=== PATIENT | female | born 1985 | race Caucasian/White ===

== ENCOUNTER 2020-11-17 10:52 | Outpatient (REF) | payer OTHER, SELFPAY ==
[2020-11-17 13:38] LABS: MANUAL DIFF FLAG NO
[2020-11-17 13:44] LABS: Basophils Percent Auto 0.2 % (0-2); Eosinophils Absolute Auto 0.2 X10*3/uL (0.0-0.4); Eosinophils Percent Auto 2.3 % (0-4); Hematocrit 45.8 % (37-47); Hemoglobin 15.4 g/dl (12.0-16.0); Imm Gran Abs Auto 0.02 X10*3/uL (0.00-0.03); Imm Gran Pct Auto 0.2 % (0.0-0.4); Lymphocytes Absolute Auto 2.3 X10*3/uL (1.2-4.9); Lymphocytes Percent Auto 24.1 % (20-40); Mean Corpuscular HGB Conc 33.6 g/dl (31.0-35.0); Mean Corpuscular Hemoglobin 29.8 pg (27.0-33.0); Mean Corpuscular Volume 88.8 fL (80-98); Mean Platelet Volume 11.8 fL (9.4-12.3); Monocytes Absolute Auto 0.8 X10*3/uL (0.1-1.2); Monocytes Percent Auto 8.5 % (2-11); Neutrophils Absolute Auto 6.1 X10*3/uL (2.0-8.3); Neutrophils Percent Auto 64.7 % (45-73); Platelet Count 219 X10*3/uL (160-400); Red Blood Count 5.16 X10*6/uL (4.20-5.50); Red Cell Distribution Width 13.1 % (11.0-16.0); White Blood Count 9.4 X10*3/uL (4.8-10.8)
[2020-11-17 14:25] LABS: Alanine Aminotransferase 15 U/L (0-31); Albumin Level 4.3 g/dL (3.5-5.0); Alkaline Phosphatase 52 U/L (39-117); Anion Gap 13 (12-20); Aspartate Amino Transferase 16 U/L (5-31); Bilirubin Total 0.7 mg/dL (0.0-1.0); Blood Urea Nitrogen 13 mg/dL (9-16); Calcium 9.6 mg/dL (8.4-10.2); Carbon Dioxide 27 mmol/L (22-29); Chloride 103 mmol/L (96-108); Estimated Glomerular Filt Rate > 60; Glucose Random 89 mg/dL (60-115); Potassium 4.5 mmol/L (3.3-5.1); Sodium 138 mmol/L (135-145); Total Protein 6.8 g/dL (6.5-8.0)
[2020-11-17 14:47] LABS: Free T4 (Free Thyroxine) 0.91 ng/dL (0.71-1.85); Thyroid Stimulating Hormone 2.12 uIU/mL (0.32-4.0)
[2020-11-17 14:56] LABS: Vitamin B12 292 pg/mL (200-900)
== END 2020-11-17 10:53 | disposition home or self-care (01) ==
LOC: HO.10HDL 10:52
PROVIDERS: Visit Provider Internal Medicine
DX: E53.8 Deficiency of other specified B group vitamins (principal); E66.9 Obesity, unspecified; F33.9 Major depressive disorder, recurrent, unspecified; Z72.0 Tobacco use
CPT/HCPCS: 36415; 80053; 82607; 84439; 84443; 85025

== ENCOUNTER 2021-10-25 10:21 | Outpatient (REF) | payer OTHER, SELFPAY ==
[2021-10-25 14:10] LABS: Appearance Urine CLEAR; Color Urine YELLOW; Glucose Urine UA NEG (NEG); Leukocyte Esterase Urine TRACE (NEG); Nitrite Urine NEG (NEG); Specific Gravity - Urine 1.015 (1.005-1.025); UACC Culture Trigger YES; Urine Blood TRACE (NEG); Urine Ketones NEG (NEG); Urine Protein NEG (NEG-TRACE)
[2021-10-25 14:45] LABS: Squamous Epithelial Cell Urine 1+ /LPF
[2021-10-25 14:46] LABS: Bacteria Urine 1+ /LPF; WBC Urine 50-75 /HPF (0-4)
== END 2021-10-25 10:22 | disposition home or self-care (01) ==
LOC: HO.10HDL 10:21
PROVIDERS: Visit Provider Internal Medicine
DX: R30.0 Dysuria (principal)
CPT/HCPCS: 81001; 87086; 87088; 87186

== ENCOUNTER 2021-11-24 10:00 | Outpatient (RCR) | payer OTHER, SELFPAY | END 2022-01-03 14:57 | disposition home or self-care (01) | LOC: HO.PT 10:00 | PROVIDERS: PCP Internal Medicine; Visit Provider Internal Medicine | DX: M53.3 Sacrococcygeal disorders, not elsewhere classified (principal) | CPT/HCPCS: 97110; 97112; 97140; 97162; 97530 ==

== ENCOUNTER 2023-06-03 11:36 | Outpatient (REF) | payer OTHER, SELFPAY ==
[2023-06-03 13:33] LABS: MANUAL DIFF FLAG NO
[2023-06-03 13:44] LABS: Basophils Percent Auto 0.3 % (0-2); Eosinophils Absolute Auto 0.1 X10*3/uL (0.0-0.4); Eosinophils Percent Auto 0.8 % (0-4); Hematocrit 45.4 % (37.0-47.0); Hemoglobin 15.1 g/dl (12.0-16.0); Imm Gran Abs Auto 0.03 X10*3/uL (0.00-0.03); Imm Gran Pct Auto 0.3 % (0.0-0.4); Lymphocytes Absolute Auto 2.4 X10*3/uL (1.2-4.9); Lymphocytes Percent Auto 23.4 % (20-40); Mean Corpuscular HGB Conc 33.3 g/dl (31.0-35.0); Mean Corpuscular Hemoglobin 29.8 pg (27.0-33.0); Mean Corpuscular Volume 89.5 fL (80.0-98.0); Mean Platelet Volume 11.8 fL (9.4-12.3); Monocytes Absolute Auto 0.9 X10*3/uL (0.1-1.2); Monocytes Percent Auto 9.2 % (2-11); Neutrophils Absolute Auto 6.7 x10*3/uL (2.0-8.3); Platelet Count 240 X10*3/uL (160-400); Red Blood Count 5.07 X10*6/uL (4.20-5.50); Red Cell Distribution Width 13.1 % (11.0-16.0); White Blood Count 10.2 X10*3/uL (4.8-10.8)
[2023-06-03 14:17] LABS: Anion Gap 12 (12-20); Blood Urea Nitrogen 8 mg/dL (9-16); Calcium 9.6 mg/dL (8.4-10.2); Carbon Dioxide 23 mmol/L (22-29); Chloride 107 mmol/L (96-108); Cholesterol 198 mg/dL (<200); Estimated Glomerular Filt Rate > 60; Glucose Random 95 mg/dL (60-115); Potassium 4.2 mmol/L (3.3-5.1); Sodium 138 mmol/L (135-145)
== END 2023-06-03 11:37 | disposition home or self-care (01) ==
LOC: HO.10HDL 11:36
PROVIDERS: Visit Provider Internal Medicine
DX: J30.1 Allergic rhinitis due to pollen (principal); Z72.0 Tobacco use; Z84.1 Family history of disorders of kidney and ureter
CPT/HCPCS: 36415; 80048; 82465; 85025

== ENCOUNTER 2024-02-10 16:56 | Outpatient (REF) | payer OTHER, SELFPAY ==
[2024-02-10 18:04] LABS: Influenza A PCR NEGATIVE (Negative); Influenza B PCR NEGATIVE (Negative); Resp Syncy Virus RNA Qual PCR NEGATIVE (Negative); SARS COV2 PCR INHOUSE NEGATIVE (Negative)
== END 2024-02-10 16:57 | disposition home or self-care (01) ==
LOC: HO.LNP 16:56
PROVIDERS: Visit Provider Internal Medicine
DX: R06.02 Shortness of breath (principal); J02.9 Acute pharyngitis, unspecified; R50.9 Fever, unspecified
CPT/HCPCS: 0241U

== ENCOUNTER 2024-11-14 00:30 | Emergency (ER) | payer OTHER, SELFPAY ==
--- NOTE | 2024-11-14 | ECG_ITS ---
Test Reason : TACHYCARDIA Blood Pressure : */* mmHG Vent. Rate : 113 BPM Atrial Rate : 113 BPM P-R Int : 144 ms QRS Dur : 80 ms QT Int : 336 ms P-R-T Axes : 33 76 14 degrees QTcB Int : 460 ms Sinus tachycardia Otherwise normal ECG When compared with ECG of 25-Oct-2009 14:34, Increase in ventricular rate Referred By: Generic ED Physician Electronically Signed By: LAMAR BEACH
[2024-11-14 00:32] VITALS: BP 130/88; PULSE 135; RESP 18; TEMP 36.8; O2SAT 98; BMI 38.5
--- NOTE | 2024-11-14 00:38 | PC.NURSE ---
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
[2024-11-14 00:49] LABS: MANUAL DIFF FLAG NO
[2024-11-14 00:56] LABS: Basophils Percent Auto 0.2 % (0-2); Eosinophils Absolute Auto 0.2 X10*3/uL (0.0-0.4); Eosinophils Percent Auto 1.6 % (0-4); Hematocrit 44.3 % (37.0-47.0); Hemoglobin 15.5 g/dl (12.0-16.0); Imm Gran Abs Auto 0.03 X10*3/uL (0.00-0.03); Imm Gran Pct Auto 0.2 % (0.0-0.4); Lymphocytes Absolute Auto 4.2 X10*3/uL (1.2-4.9); Lymphocytes Percent Auto 29.2 % (20-40); Mean Corpuscular Hemoglobin 29.8 pg (27.0-33.0); Mean Corpuscular Volume 85.2 fL (80.0-98.0); Mean Platelet Volume 10.5 fL (9.4-12.3); Monocytes Absolute Auto 1.2 X10*3/uL (0.1-1.2); Monocytes Percent Auto 8.4 % (2-11); Neutrophils Absolute Auto 8.6 x10*3/uL (2.0-8.3); Neutrophils Percent Auto 60.4 % (45-73); Platelet Count 263 X10*3/uL (160-400); Red Cell Distribution Width 12.9 % (11.0-16.0); White Blood Count 14.3 X10*3/uL (4.8-10.8)
[2024-11-14 01:11] LABS: Alanine Aminotransferase 20 U/L (0-31); Albumin Level 4.3 g/dL (3.5-5.0); Alkaline Phosphatase 61 U/L (39-117); Anion Gap 15 (12-20); Aspartate Amino Transferase 19 U/L (5-31); Bilirubin Total 0.3 mg/dL (0.0-1.0); Blood Urea Nitrogen 12 mg/dL (9-16); Calcium 9.3 mg/dL (8.4-10.2); Carbon Dioxide 27 mmol/L (22-29); Chloride 102 mmol/L (96-108); Creatinine Clr Calc Pharmacy 115.3; Estimated Glomerular Filt Rate > 60; Glucose Random 107 mg/dL (60-115); Potassium 3.4 mmol/L (3.3-5.1); Sodium 141 mmol/L (135-145); Total Protein 7.5 g/dL (6.5-8.0)
[2024-11-14 01:18] LABS: Troponin-I High Sensitivity < 2.7 ng/L (<3.5-17.0)
--- NOTE | 2024-11-14 01:30 | ED_ITS ---
HPI - Arrhythmia/Palpitations General Chief Complaint: Arrhythmia/Palpitations Stated Complaint: heart rate 150, bilateral arm pain Time Seen by Provider: 11/14/24 01:30 Source: patient Mode of arrival: ambulatory Limitations: no limitations History of Present Illness ED Provider: HPI narrative: Patient no significant past medical history noticed lightheadedness and tachycardia when she stood up prior to arrival with heart rate in 130s patient has passed out a week ago at that time she did not check her heart rate patient's drinks caffeine and had smoked marijuana Related Data Allergies Allergy/AdvReac Type Severity Reaction Status Date / Time No Known Allergies Allergy Verified 11/14/24 00:36 [No Known Allergies*] Review of Systems 2 Review of Systems: Yes all other systems are reviewed and are negative [facility] Social History Social History Smoked in Last 30 Days: Yes Use of substances other than those prescribed or required for medical reasons: Yes Substance Use Type: Marijuana Advance Directives: No Advance Directives Information Provided: Yes Do you have a plan to hurt others: No Plan Patient : No Physical Exam 2 Vital Signs: Vital Signs: Last Vital Signs Temp 97.5 F 11/14/24 03:45 Pulse 100 11/14/24 03:45 Resp 12 11/14/24 03:45 BP 121/63 11/14/24 03:45 Pulse Ox 97 11/14/24 03:45 O2 Del Method Room Air 11/14/24 03:45 BMI result Body Mass Index 38.5 Appearance: Alert. Oriented X3. No acute distress. Eyes: PERRLA, No Nystagmus ENT: Pharynx normal. Oral Mucosa moist Neck: Normal inspection. Neck supple. CVS: Normal heart rate and rhythm. Pulses normal. Respiratory: No respiratory distress. Equal air entry bilateral, no wheezing/rales/rhonchi Abdomen: Soft and nontender. Bowel sounds are present, no mass palpable, no CVA tenderness Skin: Skin warm and dry. Normal skin color. Normal skin turgor. Extremities: No lower extremity edema. No calf tenderness Neuro: Oriented X 3. No motor deficit. No sensory deficit.No cerebellar signs , cranial nerves II-XII intact Medical Decision Making Medical Decision Making MDM Narrative: Patient's heart rate went high on standing to 110 with blood pressure dropped from 121/63 while sitting to 107/63 with heart rate of 107 likely patient has POTS syndrome will give a p.o. fluids recheck Lab Data MDM Lab Attestation statement: I reviewed the patient's lab results. 11/14/24 00:45 11/14/24 00:45 Labs: Lab Results 11/14/24 Range/Units 00:45 WBC 14.3 H (4.8-10.8) X10*3/uL RBC 5.20 (4.20-5.50) X10*6/uL Hgb 15.5 (12.0-16.0) g/dl Hct 44.3 (37.0-47.0) % MCV 85.2 (80.0-98.0) fL MCH 29.8 (27.0-33.0) pg MCHC 35.0 (31.0-35.0) g/dl RDW 12.9 (11.0-16.0) % Plt Count 263 (160-400) X10*3/uL MPV 10.5 (9.4-12.3) fL Immature Gran % (Auto) 0.2 (0.0-0.4) % Neut % (Auto) 60.4 (45-73) % Lymph % (Auto) 29.2 (20-40) % Castro % (Auto) 8.4 (2-11) % Eos % (Auto) 1.6 (0-4) % Baso % (Auto) 0.2 (0-2) % Lymph # (Auto) 4.2 (1.2-4.9) X10*3/uL Castro # (Auto) 1.2 (0.1-1.2) X10*3/uL Eos # (Auto) 0.2 (0.0-0.4) X10*3/uL Baso # (Auto) 0.0 (0.0-0.2) X10*3/uL Abs Immat Gran (auto) 0.03 (0.00-0.03) X10*3/uL Absolute Neuts (auto) 8.6 H (2.0-8.3) x10*3/uL Absolute Nucleated RBC 0.000 (0.0-0.012) X10*3/uL Nucleated RBC % (auto) 0.0 (0.0-0.2) /100WBC Sodium 141 (135-145) mmol/L Potassium 3.4 (3.3-5.1) mmol/L Chloride 102 (96-108) mmol/L Carbon Dioxide 27 (22-29) mmol/L Anion Gap 15 (12-20) BUN 12 (9-16) mg/dL Creatinine 0.86 (0.5-1.4) mg/dL Estim Creat Clear Calc 115.3 Estimated GFR > 60 Random Glucose 107 (60-115) mg/dL Calcium 9.3 (8.4-10.2) mg/dL Magnesium 2.0 (1.6-2.6) mg/dL Total Bilirubin 0.3 (0.0-1.0) mg/dL AST 19 (5-31) U/L ALT 20 (0-31) U/L Alkaline Phosphatase 61 (39-117) U/L Troponin I High Sens < 2.7 (<3.5-17.0) ng/L Total Protein 7.5 (6.5-8.0) g/dL Albumin 4.3 (3.5-5.0) g/dL Independent Interpretation I performed an independent interpretation of an: EKG Interpretation: Sinus tachycardia with heart rate of 113 beats per minute no acute ST-T changes no acute ischemia Discharge Plan Discharge Clinical Impression: Postural orthostatic tachycardia syndrome [POTS] Patient Disposition: Home, Self-Care Instructions: Supraventricular Tachycardia (ED) Additional Instructions: Likely have postural orthostatic tachycardia syndrome Drink plenty of fluids at least 3 L of water a day Avoid caffeine drinks Take your own time on standing do not stand up quick Follow with your PCP for further management Interventions: ED Discharge Assessment Last Done: 11/14/24 03:45 Discharge Date/Time: 11/14/24 03:49 Print Language: Portuguese
[2024-11-14 01:38] VITALS: BP 122/69; PULSE 92; RESP 16; TEMP 37.1; O2SAT 97
[2024-11-14 02:00] VITALS: BP 121/63; PULSE 100; RESP 12; TEMP 36.4; O2SAT 97
[2024-11-14 03:45] VITALS: BP 121/63; PULSE 100; RESP 12; TEMP 36.4; O2SAT 97
== END 2024-11-14 03:49 | disposition home or self-care (01) ==
PROVIDERS: Emergency Provider Internal Medicine; PCP Internal Medicine
DX: G90.A Postural orthostatic tachycardia syndrome [POTS] (principal); R42 Dizziness and giddiness; R00.0 Tachycardia, unspecified; F12.90 Cannabis use, unspecified, uncomplicated
CPT/HCPCS: 36415; 80053; 83735; 84484; 85025; 93005; 99283; 99285

== ENCOUNTER → 2024-11-14 00:38 | Outpatient (BNV) | payer OTHER, SELFPAY | PROVIDERS: Emergency Provider Internal Medicine; PCP Internal Medicine; Visit Provider Internal Medicine | DX: R00.0 Tachycardia, unspecified (principal) | CPT/HCPCS: 93010 ==

== ENCOUNTER 2024-11-18 16:24 | Outpatient (AMB) | payer OTHER, SELFPAY ==
--- NOTE | 2024-11-18 16:25 | A.OFFPC_ITS ---
Vital Signs 11/18/24 16:26 Height 5 ft 7 in Weight 243 lb BMI 38.1 BP 118/78 Respiration 16 Pulse 94 Pulse Source Pulse Oximeter Temp 97.7 F Temp Source Temporal Artery Scan Pulse Oximetry (%) 96 Oxygen Delivery Method Room Air Intake Visit Reasons: Routine Transmission Tester Required: No Accompanied by: Self / Same As Patient Allergies No Known Allergies [No Known Allergies*] Allergy (Verified 11/18/24 18:08) Medication List - Last Reconciled 11/18/24 by Ahmet Gaitan MD No Known Home Meds Tobacco use date assessed: 11/18/24 Dental Screening Dental Screen Date: 11/18/24 Did you have a dental visit in the last 12 months?: Yes Did you have a dental problem in the last 6 months where you did not have access to dental care?: No PFSH Family History (Updated 11/18/24 @ 16:37 by JANENE Paula) Father Afib Mother Fibroids Social History (Updated 11/18/24 @ 16:38 by JANENE Paula) Housing: House Alcohol intake: current Alcohol intake frequency: does not drink Patient Tobacco Use Status: Current someday Tobacco user Cigarette Packs Per Day: 1 Substance Use Type: Marijuana service: No Current occupational status: employed Cognitive needs: No Hearing needs: No Vision needs: Yes (rx glasses) Questionnaire PHQ-9 Over the last 2 weeks, how often have you been bothered by any of the following problems? 1. Little interest or pleasure in doing things: not at all 2. Feeling down, depressed, or hopeless: not at all 3. Trouble falling or staying asleep, or sleeping too much: not at all 4. Feeling tired or having little energy: not at all 5. Poor appetite or overeating: not at all 6. Feeling bad about yourself - or that you are a failure or have let yourself or your family down: not at all 7. Trouble concentrating on things, such as reading the newspaper or watching television: not at all 8. Moving or speaking so slowly that other people could have noticed. Or the opposite - being so fidgety or restless that you have been moving around a lot more than usual: not at all 9. Thoughts that you would be better off or of hurting yourself in some way: not at all Total score: 0 Source: Developed by Drs. Lanre Hurley, Tc Cuevas and colleagues, with an educational mary from [employer]. Thrive Questionnaire Date Thrive assessed: 11/18/24 I am a: Patient What is your living situation today?: I have a steady place to live Within the past 12 months, did the food you bought not last and you didn't have the money to get more?: Never true Within the past 12 months, did you worry whether your food would run out before you got money to buy more?: Never true Do you have trouble paying for medicines?: No Do you have trouble getting transportation to medical appointments?: No Do you have trouble paying your heating and electricity bill?: No Do you have trouble taking care of your child, family member or friend?: No Do you have trouble with day-to-day activities such as bathing, preparing meals, shopping, managing finances, etc.?: No Are you currently unemployed and looking for a job?: No Are you interested in more education?: No Please select the resources that you would like help with: None THRIVE Score: 0 AUDIT C Alcohol Use Questionnaire (AUDIT-C) 1. How often do you have a drink containing alcohol?: Never 3. How often do you have six or more drinks on one occasion?: Never Total Score: 0 LENKA-7 AMB Questionnaire LENKA-7 Date LENKA - 7 assessed: 11/18/24 Feeling nervous, anxious, or on edge: 0 = Not at all Not being able to stop or control worryin = Not at all Worrying too much about different things: 0 = Not at all Trouble relaxin = Not at all Being so restless that it is hard to sit still: 0 = Not at all Becoming easily annoyed or irritable: 0 = Not at all Feeling afraid as if something awful might happen: 0 = Not at all Total LENKA-7 score (0-4 normal; 5-9 mild; 10-14 moderate; 15-21 severe): 0 Source: Developed by Dena Carter Kurt Kroenke and colleagues, with an educational mary from [employer]. Physical exam (Primary Care) Vital Signs: Last Vital Signs Temp 97.7 F 11/18/24 16:26 Pulse 94 11/18/24 16:26 Resp 16 11/18/24 16:26 BP 118/78 11/18/24 16:26 Pulse Ox 96 11/18/24 16:26 Oxygen Delivery Method Room Air 11/18/24 16:26 BMI result Body Mass Index 38.1 Tobacco/Smoking Status: Tobacco use Status Tobacco use date assessed 11/18/24 11/18/24 16:39 Patient Tobacco Use Status Current someday Tobacco 11/18/24 16:39 PHQ-9: PHQ-9 Score PHQ-9: Total score 0 11/18/24 16:39 Thrive Assessment: Date of Thrive Assessment Date Thrive assessed 11/18/24 11/18/24 16:39 Coding Level of Care Code New Pt Level 4 (61251) Complex EM visit Add On G2211 Diagnoses Tachycardia R00.0 Concussion S06.0XAA Assessment & Plan Assessment & Plan (1) Tachycardia: Code(s): R00.0 - Tachycardia, unspecified Plan: TSH and ESR to be checked (2) Concussion: Code(s): S06.0XAA - Concussion with loss of consciousness status unknown, initial encounter Plan: CT scan of head ordered. Will call with results Plan History of Present Illness The patient is a 39-year-old female presenting with elevated heart rate and suspected Postural Orthostatic Tachycardia Syndrome (POTS). The episodes began post a syncopal incident that involved a fall and head injury approximately two weeks ago. She visited the ER after experiencing a resting heart rate of 150 bpm which persisted, alongside symptoms indicating potential cardiovascular stress. Previous thorough thyroid evaluations during similar episodes in 2020 yielded normal results; however, new thyroid assessments were not conducted during this ER visit. History of childhood ADD treatment with Imipramine and recent depression/anxiety management using Guanfacine were reviewed for cardiovascular side effects. Despite patient anxiety, resting and exertional heart rates have remained notably increased compared to rates recorded previously, aligning with episodes of tachycardia since post-COVID 2021. Current history of using cannabis. Social History - Employment: Works as a real estate office supervisor; capable of performing duties without recent difficulty. - Substance Use: Previously a regular cannabis smoker; ceased use post-ER visit, regular cannabis use and reduced to one half-caf coffee per day post-ER visit. - Significant Life Event: Upcoming wedding, but does not feel conscious stress about this event. - Functional Status: Remains fully functional and active in daily work activities. Review of Systems - Cardiovascular: Reports consistently elevated resting heart rate, palpitations; denies chest pain. - Neurological: Denies tremors, sweating; reports dizziness, mild headache, pressure, and fullness in ears. - Respiratory: Reports occasional shortness of breath with palpitations. - Endocrine: Denies hot or cold intolerance. - General: Denies fatigue, weight loss or gain outside of stress factors. - Musculoskeletal: Denies muscle or joint pain. Physical Exam General: Appearance normal, both eyes and all related structures Nutritional Appearance: Well nourished Orientation/consciousness: Patient oriented x3 Limitations: No limitations Head: Tender area on the scalp, no bleeding Neck: Uncomfortable, normal visual inspection Chest: Normal palpation of entire chest wall, patient reports feeling like there's air in the chest Respiratory: Normal respiratory effort, patient reports feeling short of breath sometimes Neurology: Patient oriented x3 Heart: S1 S2 tachycardia Results - Labs: Blood sugar levels normal. - Tests: Previous thyroid panel (2020) normal. Plan Assessment for Postural Orthostatic Tachycardia Syndrome merits investigation via endocrinological and cardiovascular evaluations. Thyroid functionality, especially given the individual's symptomatic history and abnormal heart rates, should be reexamined against recent observations. Beta blockers, although available, were not introduced, as patient symptoms and conditions do not demand acute interventions. Reassurances about cardiac health are emphasized, particularly with recently normal EKG findings. Patient was informed and verbally consented to the use of an ambient scribe for clinic note documentation during this visit. Discussion Notes Will get TSH and ESR checked. Since all symptoms started after the fall, a CT of the head will be ordered Patient Instructions - Monitor heart rate regularly at home, especially with activity changes. - Reduce caffeine intake even further if possible. - Avoid any substances that may affect heart rate significantly. - Seek immediate medical attention for any significant increase in symptoms, especially severe palpitations, chest pain, or acute dizziness. - Schedule a follow-up appointment for further thyroid and cardiovascular evaluation. - Maintain regular activity levels as tolerated and discuss any changes in symptoms with me. Orders: Orders CT head/brain wo IV con Today R00.0 - Tachycardia, unspecified, S06.0XAA - Concussion with loss of consciousness status unknown, initial encounter Thyroid Stimulating Hormone Today R00.0 - Tachycardia, unspecified Erythrocyte Sedimentation Rate Today R00.0 - Tachycardia, unspecified
[2024-11-18 16:26] VITALS: BP 118/78; PULSE 94; RESP 16; TEMP 36.5; O2SAT 96; BMI 38.1
== END 2024-11-18 16:58 | disposition home or self-care (01) ==
LOC: HO.HMCHD 16:24
PROVIDERS: PCP Internal Medicine; Visit Provider Internal Medicine
DX: R00.0 Tachycardia, unspecified (principal); S06.0XAA Concussion with loss of consciousness status unknown, initial encounter

== ENCOUNTER → 2024-11-18 16:24 | Outpatient (BNVA) | payer OTHER, SELFPAY | PROVIDERS: PCP Internal Medicine; Visit Provider Internal Medicine | DX: R00.0 Tachycardia, unspecified (principal); S06.0XAD Concussion with loss of consciousness status unknown, subsequent encounter | CPT/HCPCS: 99202 ==

== ENCOUNTER 2024-11-19 13:11 | Outpatient (REF) | payer OTHER, SELFPAY ==
[2024-11-19 14:49] LABS: Erythrocyte Sedimentation Rate 8 MM/HR (0-20)
[2024-11-19 15:50] LABS: Thyroid Stimulating Hormone 1.84 uIU/mL (0.32-4.0)
== END 2024-11-19 13:12 | disposition home or self-care (01) ==
LOC: HO.LAB 13:11
PROVIDERS: PCP Internal Medicine; Visit Provider Internal Medicine
DX: R00.0 Tachycardia, unspecified (principal)
CPT/HCPCS: 36415; 84443; 85652

== ENCOUNTER 2025-01-06 15:25 | Outpatient (AMB) | payer OTHER, SELFPAY ==
--- NOTE | 2025-01-06 15:37 | A.OFFPC_ITS ---
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 She states that 2 months ago, she had used psilocybin and subsequently did develop lightheadedness causing her to fall back hitting her head against a wall. She did lose consciousness as witnessed by her girlfriend for 1-2 minutes and was noted to have been convulsing. She does have full recollection following the event. Following the episode, she had been experiencing palpitations with heart rate up to 150 beats per minute ongoing for 1 hours so she presented to the ED. she had also been experiencing blood pressure fluctuations. She was told that she likely had POTS. EKG was without any noted arrhythmia. Since then, symptoms have been stable. She has been increasing water intake and has been slow with position changes. She does endorse ongoing depression anxiety primarily related to seasonal changes. She does follow with a therapist. She also reports chronic pain primarily in the neck and left hip. PFSH Family History Father Afib Mother Fibroids Social History Housing: House Alcohol intake: current Alcohol intake frequency: does not drink Patient Tobacco Use Status: Current someday Tobacco user Cigarette Packs Per Day: 1 Substance Use Type: Marijuana service: No Current occupational status: employed Cognitive needs: No Hearing needs: No Vision needs: Yes (rx glasses) Questionnaire PHQ-9 Over the last 2 weeks, how often have you been bothered by any of the following problems? 1. Little interest or pleasure in doing things: not at all 2. Feeling down, depressed, or hopeless: not at all 3. Trouble falling or staying asleep, or sleeping too much: not at all 4. Feeling tired or having little energy: not at all 5. Poor appetite or overeating: not at all 6. Feeling bad about yourself - or that you are a failure or have let yourself or your family down: not at all 7. Trouble concentrating on things, such as reading the newspaper or watching television: not at all 8. Moving or speaking so slowly that other people could have noticed. Or the opposite - being so fidgety or restless that you have been moving around a lot more than usual: not at all 9. Thoughts that you would be better off or of hurting yourself in some way: not at all Total score: 0 Source: Developed by Drs. Lanre Hurley, Dena Dumont, Tc Corbett and colleagues, with an educational mary from [employer]. Thrive Questionnaire Date Thrive assessed: 01/06/25 I am a: Patient What is your living situation today?: I have a steady place to live Within the past 12 months, did the food you bought not last and you didn't have the money to get more?: Never true Within the past 12 months, did you worry whether your food would run out before you got money to buy more?: Never true Do you have trouble paying for medicines?: No Do you have trouble getting transportation to medical appointments?: No Do you have trouble paying your heating and electricity bill?: No Do you have trouble taking care of your child, family member or friend?: No Do you have trouble with day-to-day activities such as bathing, preparing meals, shopping, managing finances, etc.?: No Are you currently unemployed and looking for a job?: No Are you interested in more education?: No Please select the resources that you would like help with: None THRIVE Score: 0 AUDIT C Alcohol Use Questionnaire (AUDIT-C) 1. How often do you have a drink containing alcohol?: Monthly or less Total Score: 1 LENKA-7 AMB Questionnaire LENKA-7 Date LENKA - 7 assessed: 01/06/25 Feeling nervous, anxious, or on edge: 0 = Not at all Not being able to stop or control worryin = Not at all Worrying too much about different things: 0 = Not at all Trouble relaxin = Not at all Being so restless that it is hard to sit still: 0 = Not at all Becoming easily annoyed or irritable: 0 = Not at all Feeling afraid as if something awful might happen: 0 = Not at all Total LENKA-7 score (0-4 normal; 5-9 mild; 10-14 moderate; 15-21 severe): 0 Source: Developed by Drs. Lanre Hurley, Dena Dumont, Tc Corbett and colleagues, with an educational mary from [employer]. Review of Systems Const All systems reviewed & are unremarkable except as noted in HPI and below Physical exam (Primary Care) Vital Signs: Last Vital Signs Temp 97.6 F 01/06/25 15:41 Pulse 84 01/06/25 15:41 Resp 16 01/06/25 15:41 BP 110/80 01/06/25 15:41 Pulse Ox 96 01/06/25 15:41 Oxygen Delivery Method Room Air 01/06/25 15:41 BMI result Body Mass Index 39.2 Tobacco/Smoking Status: Tobacco use Status Tobacco use date assessed 01/06/25 01/06/25 15:44 Patient Tobacco Use Status Current someday Tobacco 01/06/25 15:44 PHQ-9: PHQ-9 Score PHQ-9: Total score 0 01/06/25 16:06 Thrive Assessment: Date of Thrive Assessment Date Thrive assessed 01/06/25 01/06/25 15:44 Coding Level of Care Code New Pt Level 4 (91887) Complex EM visit Add On G2211 Diagnoses Seasonal affective disorder F33.8 Depression F32.A Polyarthralgia M25.50 Class II obesity E66.812 Assessment & Plan Assessment & Plan (1) Seasonal affective disorder: Code(s): F33.8 - Other recurrent depressive disorders Category: Medical Plan: Continue following with counselor. Recommend red light therapy as symptoms dakota e. Currently symptoms are controlled (2) Depression: Code(s): F32.A - Depression, unspecified Category: Medical Plan: See above (3) Polyarthralgia: Code(s): M25.50 - Pain in unspecified joint Category: Medical Plan: Recommend as needed analgesics. Can use ibuprofen, Tylenol, heat/ice, lidocaine patches. Given symptoms in multiple joints, will also check inflammatory markers, HERMINIA, and Lyme. Recommend ongoing exercise and lifestyle modifications to help of weight loss which can secondarily improve joint pain (4) Class II obesity: Code(s): E66.812 - Obesity, class 2 Category: Medical Plan: Weight loss efforts encouraged including healthy diet and exercise routine. TSH to be evaluated as well as hemoglobin A1c to evaluate for diabetes Plan Follow-up for physical exam. Labs to be completed today. Orders: Orders Basic Metabolic Panel Today F32.A - Depression, unspecified, F33.8 - Other recurrent depressive disorders, Z13.1 - Encounter for screening for diabetes mellitus, Z13.220 - Encounter for screening for lipoid disorders Complete Blood Count Auto Diff Today F32.A - Depression, unspecified, F33.8 - Other recurrent depressive disorders, Z13.1 - Encounter for screening for diabetes mellitus, Z13.220 - Encounter for screening for lipoid disorders Vitamin D 25-OH Total Today F32.A - Depression, unspecified, F33.8 - Other recurrent depressive disorders, Z13.1 - Encounter for screening for diabetes mellitus, Z13.220 - Encounter for screening for lipoid disorders Magnesium Today F32.A - Depression, unspecified, F33.8 - Other recurrent depressive disorders, Z13.1 - Encounter for screening for diabetes mellitus, Z13.220 - Encounter for screening for lipoid disorders HERMINIA Reflex Titer and Pattern Today M25.50 - Pain in unspecified joint C Reactive Protein Today M25.50 - Pain in unspecified joint Erythrocyte Sedimentation Rate Today M25.50 - Pain in unspecified joint TSH reflex Free T4 Today E66.812 - Obesity, class 2 Hemoglobin A1c Today F32.A - Depression, unspecified, F33.8 - Other recurrent depressive disorders, Z13.1 - Encounter for screening for diabetes mellitus, Z13.220 - Encounter for screening for lipoid disorders IRON PROFILE Today F32.A - Depression, unspecified, F33.8 - Other recurrent depressive disorders, Z13.1 - Encounter for screening for diabetes mellitus, Z13.220 - Encounter for screening for lipoid disorders Lipid Panel Today F32.A - Depression, unspecified, F33.8 - Other recurrent depressive disorders, Z13.1 - Encounter for screening for diabetes mellitus, Z13.220 - Encounter for screening for lipoid disorders Vitamin B12 Today F32.A - Depression, unspecified, F33.8 - Other recurrent depressive disorders, Z13.1 - Encounter for screening for diabetes mellitus, Z13.220 - Encounter for screening for lipoid disorders Lyme IgG/IgM w/reflex to WB Today M25.50 - Pain in unspecified joint
[2025-01-06 15:41] VITALS: BP 110/80; PULSE 84; RESP 16; TEMP 36.4; O2SAT 96; BMI 39.2
== END 2025-01-06 16:26 | disposition home or self-care (01) ==
LOC: HO.HMCHD 15:26
PROVIDERS: PCP Internal Medicine; Visit Provider Physician Assistant
DX: M25.50 Pain in unspecified joint (principal); E66.812 Obesity, class 2; Z68.39 Body mass index [BMI] 39.0-39.9, adult; F32.A Depression, unspecified

== ENCOUNTER → 2025-01-06 15:25 | Outpatient (BNVA) | payer OTHER, SELFPAY | PROVIDERS: PCP Internal Medicine; Visit Provider Physician Assistant | DX: F33.8 Other recurrent depressive disorders (principal); F32.A Depression, unspecified; M25.50 Pain in unspecified joint; E66.812 Obesity, class 2; Z68.39 Body mass index [BMI] 39.0-39.9, adult | CPT/HCPCS: 99202 ==

== ENCOUNTER 2025-01-29 08:27 | Outpatient (REF) | payer OTHER, SELFPAY ==
[2025-01-29 08:52] LABS: MANUAL DIFF FLAG NO
[2025-01-29 09:21] LABS: Basophils Percent Auto 0.3 % (0-2); Eosinophils Absolute Auto 0.2 X10*3/uL (0.0-0.4); Eosinophils Percent Auto 1.6 % (0-4); Hematocrit 47.3 % (37.0-47.0); Hemoglobin 15.8 g/dl (12.0-16.0); Imm Gran Abs Auto 0.03 X10*3/uL (0.00-0.03); Imm Gran Pct Auto 0.3 % (0.0-0.4); Lymphocytes Absolute Auto 2.7 X10*3/uL (1.2-4.9); Lymphocytes Percent Auto 27.3 % (20-40); Mean Corpuscular HGB Conc 33.4 g/dl (31.0-35.0); Mean Corpuscular Hemoglobin 29.4 pg (27.0-33.0); Mean Corpuscular Volume 88.1 fL (80.0-98.0); Mean Platelet Volume 10.7 fL (9.4-12.3); Monocytes Absolute Auto 0.9 X10*3/uL (0.1-1.2); Neutrophils Absolute Auto 6.2 x10*3/uL (2.0-8.3); Neutrophils Percent Auto 61.5 % (45-73); Platelet Count 240 X10*3/uL (160-400); Red Blood Count 5.37 X10*6/uL (4.20-5.50)
[2025-01-29 09:26] LABS: Estimated Average Glucose 103 mg/dL; Hemoglobin A1c % 5.2 % (<6.0); Total Hemoglobin (HGBA1C) 4063.5248 umol/L
[2025-01-29 10:03] LABS: Anion Gap 14 (12-20); Blood Urea Nitrogen 11 mg/dL (9-16); C Reactive Protein 1.12 mg/dL (< or = 0.50); Calcium 9.1 mg/dL (8.4-10.2); Carbon Dioxide 23 mmol/L (22-29); Chloride 108 mmol/L (96-108); Cholesterol 203 mg/dL (<200); Estimated Glomerular Filt Rate > 60; Glucose Random 96 mg/dL (60-115); HDL Cholesterol 34 mg/dL (>40); Iron 73 mcg/dL (30-160); LDL Cholesterol Calculated 129 mg/dL (<100); Magnesium 2.3 mg/dL (1.6-2.6); Percent Iron Saturation 25 % (15-50); Potassium 4.4 mmol/L (3.3-5.1); Sodium 141 mmol/L (135-145); Total Iron Binding Capacity 291 mcg/dL (228-428); Triglycerides 202 mg/dL (<150); Unsaturated Iron Binding 218 ug/dL
[2025-01-29 10:07] LABS: Erythrocyte Sedimentation Rate 7 MM/HR (0-20)
[2025-01-29 10:21] LABS: TSH reflex Free T4 2.23 uIU/mL (0.32-4.0); Vitamin D 25-OH Total 27.4 ng/mL (>30)
[2025-01-29 10:30] LABS: Vitamin B12 299 pg/mL (200-900)
[2025-01-30 05:58] LABS: Lyme Abs Screen <0.90 index
[2025-02-01 15:54] LABS: Anti Nuclear Antibody Screen NEGATIVE (NEGATIVE)
== END 2025-01-29 08:28 | disposition home or self-care (01) ==
LOC: HO.LAB 08:27
PROVIDERS: PCP Physician Assistant; Visit Provider Physician Assistant
DX: M25.50 Pain in unspecified joint (principal); F32.A Depression, unspecified; Z13.220 Encounter for screening for lipoid disorders; Z13.1 Encounter for screening for diabetes mellitus; E66.812 Obesity, class 2
CPT/HCPCS: 36415; 80048; 80061; 82306; 82607; 83036; 83540; 83735; 84443; 85025; 85652; 86038; 86140; 86617; 86618